=== PATIENT | female | born 1980 | race Two or more races ===

== ENCOUNTER 2020-10-15 00:16 | Inpatient (IN) | payer MEDICAID ==
[~2020-10-15] VITALS: Ht 157.5 cm; Wt 81.6 kg
[~2020-10-15 00:16] MED LIST: PREN-96 PO
[2020-10-15 01:08] LABS: Basophils # (auto) 0.1 10 ^3/uL (0-0.2); Basophils % (auto) 0.3 % (0.0-2.0); Eosinophils # (auto) 0.3 10 ^3/uL (0-0.8); Eosinophils % (auto) 2.3 % (0.0-7.0); Hematocrit 27.6 % (36.0-46.0); Hemoglobin 7.9 g/dL (12.2-16.2); Lymphocytes # (auto) 2.8 10 ^3/uL (0.4-5.4); Lymphocytes % (auto) 19.3 % (10.0-50.0); Mean Corpuscular Hemoglobin 16.9 pg (28.0-32.0); Mean Corpuscular Hgb Conc. 28.8 g/dL (32.0-36.0); Mean Corpuscular Volume 58.8 fL (80.0-100.0); Monocytes % (auto) 6.7 % (0.0-12.0); Neutrophils # (auto) 10.5 10 ^3/uL (1.6-8.6); Neutrophils % (auto) 71.4 % (37.0-80.0); Nucleated Red Blood Cells % 0.1 %; Red Blood Cells 4.69 10^6/uL (4.0-5.20); Red Cell Distribution Width 21.4 % (11.8-14.3); White Blood Cell 14.7 10^3/uL (4.4-10.8)
[2020-10-15] MEDS ORDERED: ONDANSETRON HCL 4 MG/2 ML VIAL IV ONE (01:15)
[2020-10-15] MEDS ORDERED: MORPHINE SULF INJ 2 MG/ML SYRINGE 1ML IV ONE (01:15)
[2020-10-15] MEDS ORDERED: SODIUM CHLORIDE 0.9% 250 ML IV ONE (01:15)
[2020-10-15 01:16] LABS: INR 1.03 (0.9-1.15); Partial Thromboplastin Time 28.2 sec (23.0-31.2)
[2020-10-15 01:17] LABS: Albumin 3.7 g/dL (3.4-5.0); BUN/Creatinine Ratio 18.6; Calcium 8.4 mg/dL (8.5-10.1); Potassium 3.8 mmol/L (3.5-5.1)
[2020-10-15 01:19] LABS: Bilirubin, Total 0.3 mg/dL (0.2-1.0); Total Protein 8.2 g/dL (6.4-8.2)
[2020-10-15] MEDS ORDERED: metroNIDAZOLE 500MG/100ML 100 ML IV ONE (01:30)
[2020-10-15] MEDS ORDERED: cefTRIAXone 1GM/50ML D5W 50 ML IV ONE (01:30)
[2020-10-15] MEDS ORDERED: HYDROmorphone HCL 2 MG/ML VL IV ONE (02:45)
[2020-10-15] MEDS: SODIUM CHLORIDE 0.9% 1,000 ML IV SCH ×2 (02:50→13:56)
[2020-10-15] MEDS: ONDANSETRON HCL 4 MG/2 ML VIAL IV PRN ×3 (02:51→11:21)
[2020-10-15] MEDS: metroNIDAZOLE 500MG/100ML 100 ML IV SCH ×3 (05:40→21:20)
[2020-10-15] MEDS: MORPHINE SULFATE 4 MG/ML SYR/VIAL IV PRN ×2 (06:03→11:21)
[2020-10-15 09:12] LABS: Urine Bacteria NONE SEEN /hpf (None Seen); Urine Blood Negative /uL (Negative); Urine Mucus FEW (None Seen); Urine Specific Gravity 1.024 (1.001-1.035); Urine WBC 6 /hpf (0 - 5)
[2020-10-15] MEDS: cefTRIAXone 1GM/50ML D5W 50 ML IV SCH (09:25)
[2020-10-15] MEDS: PANTOPRAZOLE 40 MG/10 ML VIAL INJ IV SCH (09:58)
[2020-10-15] MEDS: HYDROmorphone HCL 2 MG/ML VL IV PRN (15:57)
[2020-10-15 20:30] VITALS: BP 125/70
[2020-10-15] MEDS ORDERED: FERR-7 PO (22:16)
[2020-10-15] MEDS ORDERED: METR500T PO (22:16)
[2020-10-15 22:18] VITALS: BP 125/70
[2020-10-16] MEDS: SODIUM CHLORIDE 0.9% 1,000 ML IV SCH ×2 (03:19→14:30)
[2020-10-16 05:00] VITALS: BP 114/63
[2020-10-16] MEDS: metroNIDAZOLE 500MG/100ML 100 ML IV SCH ×3 (05:32→21:20)
[2020-10-16 06:09] LABS: Basophils # (auto) 0.1 10 ^3/uL (0-0.2); Eosinophils # (auto) 0.5 10 ^3/uL (0-0.8); Hemoglobin 7.8 g/dL (12.2-16.2); Neutrophils # (auto) 16.6 10 ^3/uL (1.6-8.6)
[2020-10-16 06:12] LABS: Basophils % (auto) 0.5 % (0.0-2.0); Eosinophils % (auto) 2.7 % (0.0-7.0); Lymphocytes # (auto) 1.6 10 ^3/uL (0.4-5.4); Lymphocytes % (auto) 7.9 % (10.0-50.0); Mean Corpuscular Hemoglobin 17.9 pg (28.0-32.0); Mean Corpuscular Volume 59.7 fL (80.0-100.0); Monocytes # (auto) 1.3 10 ^3/uL (0-1.3); Monocytes % (auto) 6.3 % (0.0-12.0); Neutrophils % (auto) 82.6 % (37.0-80.0); Nucleated Red Blood Cells % 0.3 %; Red Blood Cells 4.35 10^6/uL (4.0-5.20)
[2020-10-16 06:21] LABS: Red Cell Distribution Width 21.3 % (11.8-14.3)
[2020-10-16 06:28] LABS: Potassium 4.3 mmol/L (3.5-5.1)
[2020-10-16 06:40] LABS: Albumin 3.2 g/dL (3.4-5.0); BUN/Creatinine Ratio 14.6; Bilirubin, Total 0.5 mg/dL (0.2-1.0); Calcium 7.9 mg/dL (8.5-10.1); Total Protein 7.4 g/dL (6.4-8.2)
[2020-10-16] MEDS: cefTRIAXone 1GM/50ML D5W 50 ML IV SCH (08:56)
[2020-10-16 09:07] VITALS: BP 115/65
[2020-10-16] MEDS: PANTOPRAZOLE 40 MG/10 ML VIAL INJ IV SCH (09:33)
[2020-10-16 13:01] VITALS: BP 110/55
[2020-10-16] MEDS ORDERED: SODIUM BICARBONATE 50ML VIAL 50 ML in SODIUM CHLORIDE 0.9% 1,000 ML IV SCH (13:15)
[2020-10-16 16:21] VITALS: BP 117/56
[2020-10-16] MEDS: MORPHINE SULFATE 4 MG/ML SYR/VIAL IV PRN (16:45)
[2020-10-16 22:00] VITALS: BP 114/72
[2020-10-17] MEDS: SODIUM CHLORIDE 0.9% 1,000 ML IV SCH ×2 (00:06→14:28)
[2020-10-17 05:00] VITALS: BP 118/69
[2020-10-17 05:19] LABS: Basophils # (auto) 0 10 ^3/uL (0-0.2); Basophils % (auto) 0.2 % (0.0-2.0); Eosinophils # (auto) 0.2 10 ^3/uL (0-0.8); Lymphocytes # (auto) 1.8 10 ^3/uL (0.4-5.4); Mean Corpuscular Hemoglobin 17.6 pg (28.0-32.0)
[2020-10-17 05:22] LABS: Eosinophils % (auto) 1.1 % (0.0-7.0); Hematocrit 26.9 % (36.0-46.0); Hemoglobin 8.2 g/dL (12.2-16.2); Lymphocytes % (auto) 10.2 % (10.0-50.0); Mean Corpuscular Hgb Conc. 30.3 g/dL (32.0-36.0); Monocytes # (auto) 1.1 10 ^3/uL (0-1.3); Monocytes % (auto) 6.1 % (0.0-12.0); Neutrophils # (auto) 14.5 10 ^3/uL (1.6-8.6); Neutrophils % (auto) 82.4 % (37.0-80.0); Red Blood Cells 4.64 10^6/uL (4.0-5.20); White Blood Cell 17.6 10^3/uL (4.4-10.8)
[2020-10-17 05:38] LABS: Calcium 8.1 mg/dL (8.5-10.1); Potassium 3.6 mmol/L (3.5-5.1)
[2020-10-17] MEDS: metroNIDAZOLE 500MG/100ML 100 ML IV SCH ×3 (05:58→23:06)
[2020-10-17 09:00] VITALS: BP 118/69
[2020-10-17] MEDS: cefTRIAXone 1GM/50ML D5W 50 ML IV SCH (09:00)
[2020-10-17] MEDS: PANTOPRAZOLE 40 MG/10 ML VIAL INJ IV SCH (09:35)
[2020-10-17] MEDS ORDERED: ceFAZolin 1GM/50ML 100 ML IV ONE (12:46)
[2020-10-17 13:00] VITALS: BP 118/70
[2020-10-17 17:00] VITALS: BP 125/69
[2020-10-17 22:24] VITALS: BP 124/70
[2020-10-18 05:00] VITALS: BP 117/75
[2020-10-18 05:36] LABS: Basophils # (auto) 0 10 ^3/uL (0-0.2); Hematocrit 24.7 % (36.0-46.0); Hemoglobin 7.7 g/dL (12.2-16.2); Monocytes # (auto) 0.9 10 ^3/uL (0-1.3)
[2020-10-18 05:37] LABS: Basophils % (auto) 0.3 % (0.0-2.0); Eosinophils # (auto) 0.3 10 ^3/uL (0-0.8); Eosinophils % (auto) 1.8 % (0.0-7.0); Lymphocytes # (auto) 1.8 10 ^3/uL (0.4-5.4); Lymphocytes % (auto) 12.8 % (10.0-50.0); Mean Corpuscular Hemoglobin 17.8 pg (28.0-32.0); Mean Corpuscular Volume 57.5 fL (80.0-100.0); Monocytes % (auto) 6.2 % (0.0-12.0); Neutrophils # (auto) 11.1 10 ^3/uL (1.6-8.6); Neutrophils % (auto) 78.9 % (37.0-80.0); White Blood Cell 14.1 10^3/uL (4.4-10.8)
[2020-10-18 05:51] LABS: Calcium 7.9 mg/dL (8.5-10.1); Potassium 3.4 mmol/L (3.5-5.1)
[2020-10-18 05:53] LABS: BUN/Creatinine Ratio 20.6
[2020-10-18] MEDS: metroNIDAZOLE 500MG/100ML 100 ML IV SCH ×3 (06:00→22:19)
[2020-10-18] MEDS: SODIUM CHLORIDE 0.9% 1,000 ML IV SCH ×2 (06:49→14:21)
[2020-10-18] MEDS ORDERED: ceFAZolin 1GM/50ML 100 ML IV ONE (08:31)
[2020-10-18] MEDS ORDERED: FAMOTIDINE (10MG/ML) 2ML VL IV ONE ×2 (08:36→11:00)
[2020-10-18] MEDS ORDERED: BUPIVACAINE 0.25% INJ 50ML VIAL ONE (08:54)
[2020-10-18] MEDS ORDERED: MIDAZOLAM HCL 2MG/2ML 2ml VIAL (1mg/ml) ONE (08:54)
[2020-10-18 08:55] VITALS: BP 117/60
[2020-10-18] MEDS ORDERED: SUCCINYLCHOLINE CHLORIDE 20 MG/ML 10ML VIAL IV ONE (08:55)
[2020-10-18] MEDS ORDERED: GLYCOPYRROLATE 0.2 MG/ML 1ML VIAL ONE (08:58)
[2020-10-18] MEDS ORDERED: HYDROmorphone HCL 2 MG/ML VL ONE (08:58)
[2020-10-18] MEDS ORDERED: KETOROLAC TROMETH 30 MG/ML 1ML VIAL ONE (08:58)
[2020-10-18] MEDS ORDERED: ROCURONIUM 10MG/ML 10ML VIAL IV ONE (08:58)
[2020-10-18] MEDS ORDERED: LIDOCAINE 2% (LOCAL ANESTH.) PF 5ml SDV ONE (08:58)
[2020-10-18] MEDS ORDERED: fentaNYL CITRATE 100 MCG/2 ML VL ONE ×2 (08:58→09:35)
[2020-10-18] MEDS ORDERED: ONDANSETRON HCL 4 MG/2 ML VIAL ONE (08:58)
[2020-10-18] MEDS ORDERED: PROPOFOL 10 MG/ML 20 ML IV ONE (08:58)
[2020-10-18] MEDS ORDERED: DexAMETHasone SOD PHOS 10MG/1ML VIAL INJ ONE (08:58)
[2020-10-18] MEDS: cefTRIAXone 1GM/50ML D5W 50 ML IV SCH (09:00)
[2020-10-18] MEDS: PANTOPRAZOLE 40 MG/10 ML VIAL INJ IV SCH (10:00)
[2020-10-18] MEDS ORDERED: POTASSIUM EFFERVESENT TAB 25 MEQ GT ONE (10:45)
[2020-10-18] MEDS ORDERED: HYDROmorphone HCL 2 MG/ML VL IV PRN (11:00)
[2020-10-18] MEDS ORDERED: ONDANSETRON HCL 4 MG/2 ML VIAL IV PRN (11:00)
[2020-10-18 13:08] VITALS: BP 120/56
[2020-10-18 16:48] VITALS: BP 112/56
[2020-10-18] MEDS: HYDROmorphone HCL 2 MG/ML VL IV PRN (20:40)
[2020-10-18 22:00] VITALS: BP 110/59
[2020-10-19] VITALS (8 sets, daily range): BP systolic 105–116; BP diastolic 60–71
[2020-10-19 06:12] LABS: Basophils # (auto) 0 10 ^3/uL (0-0.2); Eosinophils # (auto) 0 10 ^3/uL (0-0.8); White Blood Cell 17.2 10^3/uL (4.4-10.8)
[2020-10-19 06:16] LABS: Basophils % (auto) 0.2 % (0.0-2.0); Hematocrit 22.7 % (36.0-46.0); Lymphocytes % (auto) 5.6 % (10.0-50.0); Mean Corpuscular Hemoglobin 17.8 pg (28.0-32.0); Mean Corpuscular Hgb Conc. 30.7 g/dL (32.0-36.0); Mean Corpuscular Volume 57.9 fL (80.0-100.0); Monocytes # (auto) 0.9 10 ^3/uL (0-1.3); Monocytes % (auto) 5.1 % (0.0-12.0); Neutrophils # (auto) 15.4 10 ^3/uL (1.6-8.6); Neutrophils % (auto) 89.1 % (37.0-80.0); Red Blood Cells 3.92 10^6/uL (4.0-5.20)
[2020-10-19 06:31] LABS: BUN/Creatinine Ratio 26.5; Calcium 8.3 mg/dL (8.5-10.1); Potassium 3.8 mmol/L (3.5-5.1)
[2020-10-19 06:38] LABS: Red Cell Distribution Width 22.7 % (11.8-14.3)
[2020-10-19] MEDS: metroNIDAZOLE 500MG/100ML 100 ML IV SCH ×3 (06:55→23:20)
[2020-10-19] MEDS: SODIUM CHLORIDE 0.9% 1,000 ML IV SCH ×2 (06:56→12:32)
[2020-10-19] MEDS: PANTOPRAZOLE 40 MG/10 ML VIAL INJ IV SCH (10:35)
[2020-10-19] MEDS: cefTRIAXone 1GM/50ML D5W 50 ML IV SCH (10:35)
[2020-10-19 11:28] LABS: Albumin 2.9 g/dL (3.4-5.0); Calcium 8.3 mg/dL (8.5-10.1); Potassium 3.7 mmol/L (3.5-5.1)
[2020-10-19 11:31] LABS: BUN/Creatinine Ratio 17.2; Bilirubin, Total 0.3 mg/dL (0.2-1.0); Total Protein 6.6 g/dL (6.4-8.2)
[2020-10-20] MEDS: SODIUM CHLORIDE 0.9% 1,000 ML IV SCH (00:52)
[2020-10-20 05:19] VITALS: BP 98/49
[2020-10-20 06:02] LABS: Eosinophils # (auto) 0.1 10 ^3/uL (0-0.8); Hemoglobin 8.1 g/dL (12.2-16.2); Neutrophils # (auto) 9.6 10 ^3/uL (1.6-8.6); White Blood Cell 12.8 10^3/uL (4.4-10.8)
[2020-10-20 06:04] LABS: Basophils # (auto) 0 10 ^3/uL (0-0.2); Basophils % (auto) 0.3 % (0.0-2.0); Eosinophils % (auto) 0.6 % (0.0-7.0); Hematocrit 26.7 % (36.0-46.0); Lymphocytes # (auto) 2.4 10 ^3/uL (0.4-5.4); Lymphocytes % (auto) 18.4 % (10.0-50.0); Mean Corpuscular Hemoglobin 18.7 pg (28.0-32.0); Mean Corpuscular Hgb Conc. 30.3 g/dL (32.0-36.0); Mean Corpuscular Volume 61.8 fL (80.0-100.0); Monocytes # (auto) 0.8 10 ^3/uL (0-1.3); Monocytes % (auto) 5.9 % (0.0-12.0); Neutrophils % (auto) 74.8 % (37.0-80.0); Nucleated Red Blood Cells % 0.1 %; Red Blood Cells 4.33 10^6/uL (4.0-5.20)
[2020-10-20 06:08] LABS: Red Cell Distribution Width 26.1 % (11.8-14.3)
[2020-10-20 06:09] LABS: Albumin 2.9 g/dL (3.4-5.0); Calcium 7.6 mg/dL (8.5-10.1); Potassium 3.5 mmol/L (3.5-5.1)
[2020-10-20 06:12] LABS: BUN/Creatinine Ratio 23.8; Bilirubin, Total 0.4 mg/dL (0.2-1.0); Total Protein 6.6 g/dL (6.4-8.2)
[2020-10-20] MEDS: metroNIDAZOLE 500MG/100ML 100 ML IV SCH (06:51)
[2020-10-20 09:00] VITALS: BP 110/62
[2020-10-20] MEDS: PANTOPRAZOLE 40 MG/10 ML VIAL INJ IV SCH (10:06)
[2020-10-20] MEDS: cefTRIAXone 1GM/50ML D5W 50 ML IV SCH (10:07)
[2020-10-20] MEDS ORDERED: DOCUSATE SOD 100 MG CAP PO ONE (10:45)
[2020-10-20] MEDS ORDERED: DOCUSATE SOD 100 MG CAP PO PRN (10:45)
== END 2020-10-20 12:55 | disposition home or self-care (01) | DRG 710 ==
LOC: ER 00:26 → OVERFLOW 02:33 → WEST WING 20:12
PROVIDERS: ADMIT Nurse Practitioner; ATTEND Internal Medicine Pulmonary Disease
PROC: 0FT44ZZ Resection of Gallbladder, Percutaneous Endoscopic Approach (ICD-10-PCS; principal; 2020-10-18 08:56)
DX: A41.9 Sepsis, unspecified organism (principal); K81.0 Acute cholecystitis; K65.3 Choleperitonitis; E66.9 Obesity, unspecified; Z20.822 Contact with and (suspected) exposure to COVID-19; E87.6 Hypokalemia; D50.9 Iron deficiency anemia, unspecified; Z83.3 Family history of diabetes mellitus; Z79.899 Other long term (current) drug therapy; Z68.33 Body mass index [BMI] 33.0-33.9, adult
CPT/HCPCS: 36415; 76705; 80048; 80053; 81001; 82150; 83690; 84702; 85025; 85610; 85730; 86850; 86900; 86901; 86920; 87426; 93971; 96361; 96365; 96366; 96367; 96375; 96376; C9113; G0378; J0330; J0690; J0696; J1100; J1885; J2001; J2250; J2405; J2704; J3490

== ENCOUNTER 2023-07-09 11:42 | Emergency (ER) | payer SELFPAY ==
[~2023-07-09] VITALS: Ht 157.5 cm; Wt 84.8 kg
[2023-07-09] VITALS (11 sets, daily range): BP systolic 100–118; BP diastolic 47–63; PULSE 62–73; RESP 14–28; TEMP 98.1–98.5; O2SAT 96–97
[~2023-07-09 11:42] MED LIST changes: +FERR-7 PO; +METR500T PO; -PREN-96 PO
[2023-07-09 12:54] LABS: Hematocrit 22.7 % (36.0-46.0); Lymphocytes # (auto) 1.6 10 ^3/uL (0.4-5.4); Monocytes # (auto) 0.6 10 ^3/uL (0-1.3)
[2023-07-09 12:56] LABS: Basophils # (auto) 0 10 ^3/uL (0-0.2); Basophils % (auto) 0.4 % (0.0-2.0); Eosinophils # (auto) 0.3 10 ^3/uL (0-0.8); Eosinophils % (auto) 2.5 % (0.0-7.0); Lymphocytes % (auto) 15.8 % (10.0-50.0); Mean Corpuscular Hemoglobin 14.8 pg (28.0-32.0); Mean Corpuscular Hgb Conc. 27.9 g/dL (32.0-36.0); Mean Corpuscular Volume 53.2 fL (80.0-100.0); Monocytes % (auto) 5.4 % (0.0-12.0); Neutrophils # (auto) 7.9 10 ^3/uL (1.6-8.6); Neutrophils % (auto) 75.9 % (37.0-80.0); Nucleated Red Blood Cells % 0.1 %; Red Blood Cells 4.27 10^6/uL (4.0-5.20); White Blood Cell 10.4 10^3/uL (4.4-10.8)
[2023-07-09 12:57] LABS: Red Cell Distribution Width 22.8 % (11.8-14.3)
[2023-07-09 12:58] LABS: Hemoglobin 6.3 g/dL (12.2-16.2)
[2023-07-09 13:01] LABS: Chloride 109 mmol/L (98-107); Potassium 3.9 mmol/L (3.5-5.1); Sodium 139 mmol/L (136-145)
[2023-07-09 13:02] LABS: Anion Gap 6 (5-15); Calcium 8.6 mg/dL (8.7-10.4); Carbon Dioxide 24 mmol/L (20-30)
[2023-07-09 13:03] LABS: INR 1.09 (0.9-1.15); Partial Thromboplastin Time 27.3 SEC (24.5-34.5); Prothrombin Time 11.4 sec (9.3-11.8)
[2023-07-09 13:07] LABS: BUN/Creatinine Ratio 23.1 (10.0-20.0); Blood Urea Nitrogen 12 mg/dL (9-23); Glucose 120 mg/dL (74-106)
[2023-07-09 13:10] LABS: Anisocytosis Slight; Platelet Estimate Adequate
[2023-07-09 13:11] LABS: Hypochromia Marked
[2023-07-09 15:35] LABS: Urine Bacteria FEW /hpf (None Seen); Urine Blood Negative /uL (Negative); Urine Clarity Clear (Clear); Urine Color Yellow (Yellow); Urine Mucus FEW (None Seen); Urine Protein, UAD Negative (Negative); Urine Specific Gravity 1.019 (1.001-1.035); Urine Urobilinogen Normal (Negative); Urine WBC 1 /hpf (0 - 5); Urine pH 6.5 (5.0-8.0)
[2023-07-09 23:07] LABS: Hematocrit 28.2 % (36.0-46.0)
== END 2023-07-09 23:55 | disposition home or self-care (01) ==
LOC: ER 11:42
DX: D64.9 Anemia, unspecified (principal); Z79.899 Other long term (current) drug therapy; Z86.2 Personal history of diseases of the blood and blood-forming organs and certain disorders involving the immune mechanism
CPT/HCPCS: 36415; 36430; 80048; 81001; 85014; 85018; 85025; 85610; 85730; 86850; 86900; 86901; 86920; 99285; P9016

== ENCOUNTER 2024-08-08 12:42 | Inpatient (IN) | payer MEDICAID ==
[2024-08-08] VITALS (8 sets, daily range): BP systolic 101–116; BP diastolic 41–69; PULSE 66–81; RESP 14–23; TEMP 98.2–98.9; O2SAT 98–99
[~2024-08-08] VITALS: Ht 160 cm; Wt 85.7 kg
--- NOTE | 2024-08-08 13:13 | ED.PDOC ---
History of Present Illness HPI Comments HPI: 44 y/o F, with PMHX anemia presents to the ED for CC of weakness. Patient states, that she had blood work drawn x 2days ago in [facility] for which she received the results today (08/08/24) indicating her Hbg to be 5.6. Patient reports, that she previously received a blood transfusion x1year ago. Patient relays, that she recently became insured and has not yet seen a PCP for her symptoms. Patient denies active bleeding, hematemesis, melena, or blood streaked bowels. No other symptoms or modifying factors present at this time. PATIENT APPROVED FOR BLOOD TRANSFUSION VITALS: Temp: 98.5 BP:112/54 HR:73 RR:18 SPO2:100 Past medical history: ANEMIA Past surgical history: CHOLECYSTECTOMY Medications: FOLLIC ACID, IRON HPI: Poor Historian. Past Medical History: Past Surgical History: REVIEW OF SYSTEMS: CONSTITUTIONAL: Denies acute: fever, diaphoresis, chills, HEAD: Denies acute: headache, photophobia Eyes: Denies acute: Double vision, vision loss, eye pain, eye discharge. EARS: Denies acute: tinnitus, hearing loss, ear discharge, ear pain, THROAT: Denies acute: sore throat, swelling, difficulty swallowing , pain with swallowing, change in voice. NECK: Denies acute: neck pain, neck swelling, stiff neck. HEART: Denies acute : chest pain, palpitations, LUNGS: Denies acute: SOB, wheezing, cough, hemoptysis ABDOMEN: Denies acute: abdominal pain, Nausea, Vomiting, diarrhea, melena , hematemesis, hematochezia SKIN: Denies acute: rash, redness, lesions, itchiness. EXTREMITIES: Denies acute: calf pain, numbness, tingling, weakness, denies pain in extremity. Denies acute: Low back pain. Neuro: Denies acute: focal neurological deficit, motor or sensory focal neurological deficit, tremors, seizure like activity, confusion, change in mental status, loss of bowel or bladder function, cauda equina like symptoms. : Denies acute: dysuria, hematuria, flank pain, increase in urinary frequency. PSYCH: Denies acute: hallucination, suicidal ideation, homicidal ideation. FEMALE: Denies acute: abnormal vaginal bleeding, foul odor, unusual discharge. PHYSICAL EXAM: General: ----mild----acute distress, awake and alert. Head: normocephalic, atraumatic. Neck: supple, trachea is midline, no swelling. Throat: Normal phonation. Eyes:, no erythema, no purulent discharge, no proptosis, no icterus. Heart: regular rate, regular rhythm, no significant murmur appreciated. Lungs: no apparent respiratory distress, Able to speak in full sentences. No wheezing, no rhonchi, no crackles. No stridors Clear to auscultation bilaterally. Abdomen: non tender to palpation, non distended, soft, no guarding, no rebound, + bowel sounds. Neuro: Awake, Alert, oriented to name, self, situation, follows commands GCS=15. Speech is normal. Skin: no petechia, no purpura, no cyanosis, noted-pale, not jaundice. Lower extremities: --no - Pitting edema no deformity, no focal swelling, no calf TTP. Makes eye contact. moves all four extremities. Face: no apparent facial droop. Ambulating in the ED independently. ED COURSE: Chief Complaint: General Weakness Time Seen by MD: 13:05 Primary Care Provider: KAREL WRIGHT Reviewed Notes: Nurses Notes, Medications, Allergies Allergies: Coded Allergies: NO KNOWN ALLERGIES (Unverified , 12/20/13) Home Meds Active Scripts Nitrofurantoin Monohydrate Mac (Macrobid) 100 Mg Cap, 100 MG PO BID for 4 Days, #8 CAP Prov:KOSTA MENDEZ MOTOR OPERATOR 08/10/24 Ferrous Sulfate (Iron) 325 Mg Tab, 325 MG PO BID for 30 Days, #60 TAB 5 Refills Prov:KOSTA MENDEZ MOTOR OPERATOR 08/10/24 Reported Medications Ferrous Sulfate (Iron) 325 Mg Tab, 325 MG PO BID, TAB 10/15/20 Information Source: Patient Mode of Arrival: Ambulatory Severity: Mild Timing: Days Duration: Since onset Prehospital treatment: None Was a procedure done? Was a procedure done?: No Differential Dx Considerations may include: Includes but not limited to thyroid disease, encephalopathy, electrolyte abnormality, sepsis, infection, intracranial pathology, drug adverse effects, arrhythmia, kidney insufficiency, ACS, CVA, malignancy, anemia X-Ray, Labs, Meds, VS Vital Signs Date Time Temp Pulse Resp B/P (MAP) Pulse Ox O2 Delivery O2 Flow Rate FiO2 08/08/24 17:11 98.5 74 15 111/67 98.5 08/08/24 16:45 65 08/08/24 16:16 Room Air* 0 21 08/08/24 14:57 98.3 73 16 128/74 (92) 97 98.3 08/08/24 14:57 73 16 97 Room Air 08/08/24 12:59 98.5 75 18 112/54 (73) 99 98.5 Lab Test 08/08/24 13:20 08/08/24 13:18 Range/Units Reticulocyte Count (auto) 2.57 H 0.5-1.5 % White Blood Count 12.5 H 4.4-10.8 10^3/uL Red Blood Count 4.01 4.0-5.20 10^6/uL Hemoglobin 5.5 *L 12.2-16.2 g/dL Hematocrit 21.2 L 36.0-46.0 % Mean Corpuscular Volume 52.9 L 80.0-100.0 fL Mean Corpuscular Hemoglobin 13.8 L 28.0-32.0 pg Mean Corpuscular Hemoglobin Concent 26.1 L 32.0-36.0 g/dL Red Cell Distribution Width 24.3 H 11.8-14.3 % Platelet Count 372 140-450 10^3/uL Mean Platelet Volume 9.5 6.9-10.8 fL Neutrophils (%) (Auto) 68.9 37.0-80.0 % Lymphocytes (%) (Auto) 22.7 10.0-50.0 % Monocytes (%) (Auto) 6.9 0.0-12.0 % Eosinophils (%) (Auto) 0.5 0.0-7.0 % Basophils (%) (Auto) 1.0 0.0-2.0 % Neutrophils # (Auto) 8.6 1.6-8.6 10 ^3/uL Lymphocytes # (Auto) 2.8 0.4-5.4 10 ^3/uL Monocytes # (Auto) 0.9 0-1.3 10 ^3/uL Eosinophils # (Auto) 0.1 0-0.8 10 ^3/uL Basophils # (Auto) 0.1 0-0.2 10 ^3/uL Nucleated Red Blood Cells 0.0 % Platelet Estimate Adequate Large Platelets Moderate Hypochromasia (manual) Marked Anisocytosis (manual) Moderate Microcytosis Marked Tear Drop Cells Few Ovalocytes Moderate Sodium Level 141 136-145 mmol/L Potassium Level 4.1 3.5-5.1 mmol/L Chloride Level 109 H 98-107 mmol/L Carbon Dioxide Level 26 20-31 mmol/L Anion Gap 6 5-15 Blood Urea Nitrogen 14 9-23 mg/dL Creatinine 0.68 0.550-1.02 mg/dL Glomerular Filtration Rate Calc 110 >90 mL/min BUN/Creatinine Ratio 20.6 H 10.0-20.0 Serum Glucose 82 74-106 mg/dL Lactic Acid Level 1.2 0.4-2.0 mmol/L Calcium Level 9.1 8.7-10.4 mg/dL Total Bilirubin 0.5 0.2-1.0 mg/dL Aspartate Amino Transferase (AST) < 8 L 13-40 U/L Alanine Aminotransferase (ALT) 13 7-40 U/L Alkaline Phosphatase 95 46-116 U/L Troponin I High Sensitivity 14 </=34 ng/L Total Protein 7.4 5.7-8.2 g/dL Albumin 4.5 3.2-4.8 g/dL Time of 1ST Reevaluation: 13:35 Reevaluation 1ST: Unchanged Patient Education/Counseling: Diagnosis, Treatment Family Education/Counseling: Other Comments Patient presented with the above HPI.---generalized weakness---workup was initiated. patient was found with the above mentioned diagnosis. the following medications were ordered: please refer to order lists of meds and tests obtained by myself Dr. Juárez. Patient ED course and VS have been stabilized. Patient has been reassessed in the ED and remained in a stable condition. Pertinent incidental findings were discussed with the patient and/or family. Patient/family voices understanding and is agreeable with plan. Patient has been observed in the ED adequate length of time to insure improvement/stability. Escalation of care considered: Consideration of escalation to observation or admission Patient was found with a symptomatic anemia requiring blood transfusion. Patient was consented for blood transfusion. Patient was ADMITTED to the medicine team for further evaluation and treatment of their presentation. All the reports of any imaging studies that were ordered by myself were reviewed by myself. Departure 1 Departure Time of Disposition: 14:10 Impression: Primary Impression: Symptomatic anemia Additional Impression: UTI (urinary tract infection) Disposition: ADMITTED INPATIENT Admit to: Tele Condition: Guarded e-Prescriptions Nitrofurantoin Monohydrate Mac (Macrobid) 100 Mg Cap 100 MG PO BID for 4 Days, #8 CAP Prov: KOSTA MENDEZ MOTOR OPERATOR 08/10/24 Ferrous Sulfate (Iron) 325 Mg Tab 325 MG PO BID for 30 Days, #60 TAB 5 Refills Prov: KOSTA MENDEZ MOTOR OPERATOR 08/10/24 Discharged With: Self Critical Care Note Critical Care Time?: Yes (35 min-critical care time only) Heart Score Heart Score: Heart Score Response (Comments) Value History N/A 0 EKG N/A 0 Age N/A 0 Risk Factors N/A 0 Troponin N/A 0 Total 0 I personally scribed for JEAN CLAUDE JUÁREZ DO ([email or web address]) on 08/08/24 at 13:13. Electronically submitted by Nisreen Salcedo ([email or web address]). I personally scribed for JEAN CLAUDE JUÁREZ DO ([email or web address]) on 08/08/24 at 16:41. Electronically submitted by Nisreen Salcedo ([email or web address]). I personally scribed for JEAN CLAUDE JUÁREZ DO ([email or web address]) on 08/08/24 at 17:40. Electronically submitted by Nisreen Salcedo ([email or web address]). I personally scribed for JEAN CLAUDE JUÁREZ DO ([email or web address]) on 08/08/24 at 19:36. Electronically submitted by Nisreen Salcedo ([email or web address]). JEAN CLAUDE JUÁREZ DO Aug 08, 2024 13:13
[2024-08-08 13:49] LABS: Basophils # (auto) 0.1 10 ^3/uL (0-0.2); Eosinophils # (auto) 0.1 10 ^3/uL (0-0.8); Hematocrit 21.2 % (36.0-46.0); Lymphocytes # (auto) 2.8 10 ^3/uL (0.4-5.4); Lymphocytes % (auto) 22.7 % (10.0-50.0)
[2024-08-08 13:50] LABS: Eosinophils % (auto) 0.5 % (0.0-7.0); Mean Corpuscular Hemoglobin 13.8 pg (28.0-32.0); Mean Corpuscular Hgb Conc. 26.1 g/dL (32.0-36.0); Mean Corpuscular Volume 52.9 fL (80.0-100.0); Monocytes # (auto) 0.9 10 ^3/uL (0-1.3); Monocytes % (auto) 6.9 % (0.0-12.0); Neutrophils # (auto) 8.6 10 ^3/uL (1.6-8.6); Neutrophils % (auto) 68.9 % (37.0-80.0); Platelet Count (auto) 372 10^3/uL (140-450); Red Blood Cells 4.01 10^6/uL (4.0-5.20); White Blood Cell 12.5 10^3/uL (4.4-10.8)
[2024-08-08 13:56] LABS: Red Cell Distribution Width 24.3 % (11.8-14.3)
[2024-08-08 14:00] LABS: Hemoglobin 5.5 g/dL (12.2-16.2)
[2024-08-08 14:03] LABS: Alanine Aminotransferase 13 U/L (7-40); Albumin 4.5 g/dL (3.2-4.8); Alkaline Phosphatase 95 U/L (46-116); Anion Gap 6 (5-15); Aspartate Aminotransferase < 8 U/L (13-40); BUN/Creatinine Ratio 20.6 (10.0-20.0); Bilirubin, Total 0.5 mg/dL (0.2-1.0); Blood Urea Nitrogen 14 mg/dL (9-23); Calcium 9.1 mg/dL (8.7-10.4); Carbon Dioxide 26 mmol/L (20-31); Chloride 109 mmol/L (98-107); Glucose 82 mg/dL (74-106); Potassium 4.1 mmol/L (3.5-5.1); Sodium 141 mmol/L (136-145); Total Protein 7.4 g/dL (5.7-8.2)
[2024-08-08] MEDS: SODIUM CHLORIDE 0.9% 1,000 ML IV ONE (15:00)
[2024-08-08] MEDS ORDERED: HYDROcodone-ACET 5/325MG TAB PO PRN (17:15)
[2024-08-08] MEDS ORDERED: ONDANSETRON HCL 4 MG/2 ML VIAL IV PRN (17:15)
[2024-08-08] MEDS ORDERED: DOCUSATE SOD 100 MG CAP PO PRN (17:15)
--- NOTE | 2024-08-08 17:21 | DVHHP2 ---
History of Present Illness Reason for Visit: Abnormal labs. Generalized weakness History of Present Illness The patient was a 44-year-old female refer to the emergency room after being found to be anemic by a provider in [facility]. The patient reports that she has been diagnosed with anemia in the past, and has not followed up with the PCP due to insurance reasons. Currently, she reports having generalized weakness, but denies having any dyspnea, or chest pain. Patient also denies having any hematuria, hematemesis, melena stools, or abnormal menstruation. P atient denies having any other medical history, and surgical history includes cholecystectomy. Heme/Onc: Anemia NOS Past Surgical History: Cholecystectomy Smoke: # pack years ALCOHOL: none Drugs: None Lives: with Family Review of Systems Constitutional: Yes: Weakness Eyes: No: Pain, Vision change, Conjunctivae inflammation, Eyelid inflammation, Other, Redness ENT: No: Ear pain, Ear discharge, Nose pain, Nose discharge, Nose congestion, Mouth pain, Mouth swelling, Throat pain, Throat swelling, Other Respiratory: No: Cough, Dry, Shortness of breath, SOB with excertion, Wheezing, Hemoptysis, Pleuritic Pain, Sputum, Wheezing, Other Cardiovascular: No: Chest Pain, Palpitations, Orthopnea, Paroxysmal Noc. Dyspnea, Edema, Lt Headedness, Other Gastrointestinal: No: Nausea, Vomiting, Abdominal Pain, Diarrhea, Constipation, Melena, Hematochezia, Other Genitourinary: No Dysuria, No Frequency, No Incontinence, No Hematuria, No Retention, No Other Musculoskeletal: No: other, neck pain, shoulder pain, arm pain, back pain, hand pain, leg pain, foot pain Skin: No: Rash, Lesions, Jaundice, Bruising, Other Neurological: No: Weakness, Numbness, Incoordination, Change in speech, Confusion, Seizures, Other Allergies: Coded Allergies: NO KNOWN ALLERGIES (Unverified , 12/20/13) Exam Vital Signs Vital Signs Date Time Temp Pulse Resp B/P (MAP) Pulse Ox O2 Delivery O2 Flow Rate FiO2 08/08/24 16:45 65 08/08/24 16:16 Room Air* 0 21 08/08/24 14:57 98.3 16 128/74 (92) 97 98.3 General Appearance: Alert, Oriented X3, Cooperative HEENT: Atraumatic, PERRLA Respiratory: Clear to auscultation, Normal air movement Cardiovascular: Normal S1, Normal S2 Extremities: No clubbing, No cyanosis, No edema, Normal pulses Neuro: Normal gait, Normal speech Psych/Mental Status: Mental status NL, Mood NL Labs/Xrays Labs Test 08/08/24 13:18 Range/Units White Blood Count 12.5 H 4.4-10.8 10^3/uL Red Blood Count 4.01 4.0-5.20 10^6/uL Hemoglobin 5.5 *L 12.2-16.2 g/dL Hematocrit 21.2 L 36.0-46.0 % Mean Corpuscular Volume 52.9 L 80.0-100.0 fL Mean Corpuscular Hemoglobin 13.8 L 28.0-32.0 pg Mean Corpuscular Hemoglobin Concent 26.1 L 32.0-36.0 g/dL Red Cell Distribution Width 24.3 H 11.8-14.3 % Platelet Count 372 140-450 10^3/uL Mean Platelet Volume 9.5 6.9-10.8 fL Neutrophils (%) (Auto) 68.9 37.0-80.0 % Lymphocytes (%) (Auto) 22.7 10.0-50.0 % Monocytes (%) (Auto) 6.9 0.0-12.0 % Eosinophils (%) (Auto) 0.5 0.0-7.0 % Basophils (%) (Auto) 1.0 0.0-2.0 % Neutrophils # (Auto) 8.6 1.6-8.6 10 ^3/uL Lymphocytes # (Auto) 2.8 0.4-5.4 10 ^3/uL Monocytes # (Auto) 0.9 0-1.3 10 ^3/uL Eosinophils # (Auto) 0.1 0-0.8 10 ^3/uL Basophils # (Auto) 0.1 0-0.2 10 ^3/uL Nucleated Red Blood Cells 0.0 % Sodium Level 141 136-145 mmol/L Potassium Level 4.1 3.5-5.1 mmol/L Chloride Level 109 H 98-107 mmol/L Carbon Dioxide Level 26 20-31 mmol/L Anion Gap 6 5-15 Blood Urea Nitrogen 14 9-23 mg/dL Creatinine 0.68 0.550-1.02 mg/dL Glomerular Filtration Rate Calc 110 >90 mL/min BUN/Creatinine Ratio 20.6 H 10.0-20.0 Serum Glucose 82 74-106 mg/dL Lactic Acid Level 1.2 0.4-2.0 mmol/L Calcium Level 9.1 8.7-10.4 mg/dL Total Bilirubin 0.5 0.2-1.0 mg/dL Aspartate Amino Transferase (AST) < 8 L 13-40 U/L Alanine Aminotransferase (ALT) 13 7-40 U/L Alkaline Phosphatase 95 46-116 U/L Troponin I High Sensitivity 14 </=34 ng/L Total Protein 7.4 5.7-8.2 g/dL Albumin 4.5 3.2-4.8 g/dL Assessment/Plan Assessment/Plan Impression: -symptomatic anemia -obesity -generalized weakness -leukocytosis Plan: -admit to Medical/Surgical unit -agree with 2 unit PRBC transfusion -iron panel prior to blood transfusion, check haptoglobin, direct and indirect Vladimir test Repeat labs in a.m. Total time spent with patient discussing and formulating plan of care: 35 minutes. This medical document was created using an electronic medical record system with [employer] dictation system. Although this document has been carefully reviewed, there may still be some phonetic and typographical errors. These areas are purely typographical due to imperfections of the software programs, and do not reflect any compromise in the patient's medical care. Plan discussed with: Patient, Other (RN) My Orders Orders - KOSTA MENDEZ LAN ADMINISTRATOR Procedure Category Date Status Time Iron Panel LAB 08/08/24 Logged 17:11 Reticulocyte Count LAB 08/08/24 Logged 17:11 Haptoglobin LAB 08/08/24 Logged 17:11 Direct Vladimir BBK 08/08/24 Logged 17:11 Indirect Vldaimir Test BBK 08/08/24 Logged 17:11 Admit ADMIT 08/08/24 Transmitted 17:12 Oxygen By Nasal RT 08/08/24 Transmitted Cannula 17:12 Hydrocodone-Acet PHA 08/08/24 Verified 5/325mg Tab ([place] 17:15 Acetaminophen Tab Or PHA 08/08/24 Verified Cap (Tylenol Tablet 17:15 Ondansetron Hcl PHA 08/08/24 Verified (Zofran) 17:15 Docusate Sodium PHA 08/08/24 Verified Capsule (Colace 17:15 Regular Diet DIET 08/08/24 Verified Dinner Basic Metabolic Panel LAB 08/09/24 Verified 04:00 Complete Blood Count LAB 08/09/24 Verified 04:00 Date of Service: Aug 08, 2024 Billing Provider: KOSTA MENDEZ NP Common Visit Codes: [id number] INP/OBS CARE (HIGH) KOSTA MENDEZ NP Aug 08, 2024 17:21
[2024-08-08 17:27] LABS: Platelet Estimate Adequate
[2024-08-08 17:28] LABS: Anisocytosis Moderate; Hypochromia Marked; Large Platelets MODERATE
[2024-08-08 17:29] LABS: Ovalocytes MODERATE; Tear Drop Cells FEW
[2024-08-08 18:13] LABS: % Iron Saturation 2.5 % (15-50)
[2024-08-08 20:26] LABS: Urine Bacteria FEW /hpf (None Seen); Urine Blood 3+ /uL (Negative); Urine Clarity Clear (Clear); Urine Color Colorless (Yellow); Urine Protein, UAD Negative (Negative); Urine Specific Gravity 1.016 (1.001-1.035); Urine Squamous Epithelial Cell FEW /hpf (<5); Urine Urobilinogen Normal (Negative); Urine WBC 7 /HPF (0-5); Urine pH 5.5 (5.0-9.0)
[2024-08-09] VITALS (7 sets, daily range): BP systolic 103–126; BP diastolic 45–67; PULSE 62–74; RESP 15–19; TEMP 98.1–98.4; O2SAT 95–98
[2024-08-09 06:11] LABS: Eosinophils # (auto) 0.1 10 ^3/uL (0-0.8); Neutrophils # (auto) 7.2 10 ^3/uL (1.6-8.6)
[2024-08-09 06:15] LABS: Basophils # (auto) 0 10 ^3/uL (0-0.2); Basophils % (auto) 0.3 % (0.0-2.0); Hematocrit 23.1 % (36.0-46.0); Hemoglobin 7.2 g/dL (12.2-16.2); Lymphocytes # (auto) 2.2 10 ^3/uL (0.4-5.4); Lymphocytes % (auto) 21.2 % (10.0-50.0); Mean Corpuscular Hemoglobin 18.5 pg (28.0-32.0); Mean Corpuscular Hgb Conc. 31.3 g/dL (32.0-36.0); Mean Corpuscular Volume 59.1 fL (80.0-100.0); Monocytes # (auto) 0.8 10 ^3/uL (0-1.3); Monocytes % (auto) 7.9 % (0.0-12.0); Neutrophils % (auto) 69.6 % (37.0-80.0); Platelet Count (auto) 243 10^3/uL (140-450); White Blood Cell 10.4 10^3/uL (4.4-10.8)
[2024-08-09 06:26] LABS: Anion Gap 8 (5-15); Calcium 8.8 mg/dL (8.7-10.4); Carbon Dioxide 24 mmol/L (20-31); Potassium 3.8 mmol/L (3.5-5.1); Sodium 140 mmol/L (136-145)
[2024-08-09 06:32] LABS: BUN/Creatinine Ratio 24.5 (10.0-20.0); Blood Urea Nitrogen 12 mg/dL (9-23); Glucose 105 mg/dL (74-106)
[2024-08-09 06:33] LABS: Chloride 108 mmol/L (98-107)
[2024-08-09 07:45] LABS: Platelet Estimate Adequate
[2024-08-09 07:46] LABS: Anisocytosis Marked; Hypochromia Marked
[2024-08-09 07:47] LABS: Ovalocytes MODERATE; Tear Drop Cells FEW
[2024-08-09 07:48] LABS: Large Platelets MODERATE
[2024-08-09] MEDS: cefTRIAXone 1GM/50ML D5W 50 ML IV SCH (09:57)
[2024-08-09] MEDS: ACETAMINOPHEN 500 MG TAB or CAP PO PRN (09:57)
--- NOTE | 2024-08-09 11:10 | DVHPN2 ---
Subjective Patient continues to report having generalized weakness. Reviewed: Care Plan, H&P, Labs, Medications Changes from previous H/P or p: No Changes General: Per HPI Eyes: No Pain, No Vision change, No Conjunctivae inflammation, No Eyelid inflammation, No Other, No Redness ENT: No Ear pain, No Ear discharge, No Nose pain, No Nose discharge, No Nose congestion, No Mouth pain, No Mouth swelling, No Throat pain, No Throat swelling, No Other Cardiovascular: No Chest Pain, No Palpitations, No Orthopnea, No Paroxysmal Noc. Dyspnea, No Edema, No Lt Headedness, No Other Respiratory: No Cough, No Dry, No Shortness of breath, No SOB with excertion, No Wheezing, No Hemoptysis, No Pleuritic Pain, No Sputum, No Other Gastrointestinal: No Nausea, No Vomiting, No Abdominal Pain, No Diarrhea, No Constipation, No Melena, No Hematochezia, No Other Genitourinary: No Dysuria, No Frequency, No Incontinence, No Hematuria, No Retention, No Other Musculoskeletal: No other, No neck pain, No shoulder pain, No arm pain, No back pain, No hand pain, No leg pain, No foot pain Skin: No Rash, No Lesions, No Jaundice, No Bruising, No Other Objective Vitals Vital Signs Date Time Temp Pulse Resp B/P (MAP) Pulse Ox O2 Delivery O2 Flow Rate FiO2 08/09/24 09:10 98.3 62 19 116/67 (83) 95 98.3 08/08/24 22:43 Room Air* 0 21 Intake/Output Intake and Output 08/09/24 07:00 Intake Total 550 ml Balance 550 ml Intake Oral 250 ml Blood Product 300 ml Other 0 ml # Voids 1 General Appearance: Alert, Oriented X3, Cooperative, mild distress HEENT: Atraumatic, PERRLA Lungs: Clear to auscultation, Normal air movement Cardiovascular: Normal S1, Normal S2 Abdomen: Normal bowel sounds Genitourinary: No Apparent Abnormalities Musculoskeletal: Normal sensory function, Normal motor function Neuro: Normal gait, Normal speech Psych/Mental Status: Mental status NL, Mood NL Medications Current Medications Medications Dose Ordered Sig/Eirca Route Start Time Stop Time Status Last Admin Dose Admin Acetaminophen/ Hydrocodone Bitart 1 tab Q6HPRN PRN PO 08/08/24 17:15 Acetaminophen 500 mg Q8HP PRN PO 08/08/24 17:15 08/09/24 09:57 500 MG Ondansetron HCl 4 mg Q6HP PRN IV 08/08/24 17:15 Docusate Sodium 100 mg BID PRN PO 08/08/24 17:15 Ceftriaxone Sodium 50 ml @ 100 mls/hr DAILY@09 IV 08/09/24 09:00 08/09/24 09:57 100 MLS/HR Laboratory Results Laboratory Tests 08/09/24 05:00 Chemistry Test 08/08/24 13:18 08/09/24 05:00 Albumin 4.5 g/dL (3.2-4.8) Calcium Level 9.1 mg/dL (8.7-10.4) 8.8 mg/dL (8.7-10.4) Total Protein 7.4 g/dL (5.7-8.2) LFT Test 08/08/24 13:18 Alanine Aminotransferase (ALT) 13 U/L (7-40) Alkaline Phosphatase 95 U/L (46-116) Aspartate Amino Transferase (AST) < 8 U/L (13-40) L Total Bilirubin 0.5 mg/dL (0.2-1.0) Urinalysis Test 08/08/24 20:13 Urine Color Colorless (Yellow) Urine Clarity Clear (Clear) Urine pH 5.5 (5.0-9.0) Urine Specific [place] 1.016 (1.001-1.035) Urine Protein Negative (Negative) Urine Ketones Negative (Negative) Urine Blood 3+ /uL (Negative) H Urine Nitrite Negative (Negative) Urine Bilirubin Negative (Negative) Urine Urobilinogen Normal mg/dL (Negative) Urine Leukocyte Esterase Trace /uL (Negative) Urine RBC 214 /hpf (0 - 4) Urine Microscopic WBC 7 /HPF (0-5) H Urine Squamous Epithelial Cells Few /hpf (<5) Urine Bacteria Few /hpf (None Seen) H Urine Glucose Normal mg/dL (Normal) Labs and/or images reviewed: Labs reviewed by me, Image(s) reviewed by me Assessment/Plan Assessment/Plan Impression: -symptomatic anemia -obesity -generalized weakness -leukocytosis -UTI Plan: -repeat hemoglobin 7.2. -continue IV antibiotic therapy -haptoglobin pending. Direct and indirect Vladimir test negative. Iron panel reviewed. -discussion made with the patient regarding plan of care. We will recheck H&H in a.m. with possible additional unit PRBC to be transfused. Repeat labs in a.m. Total time spent with patient discussing and formulating plan of care: 35 minutes. This medical document was created using an electronic medical record system with [employer] dictation system. Although this document has been carefully reviewed, there may still be some phonetic and typographical errors. These areas are purely typographical due to imperfections of the software programs, and do not reflect any compromise in the patient's medical care. Plan discussed with: Patient, Other (RN) My Orders Orders - KOSTA MENDEZ NP Procedure Category Date Status Time Haptoglobin LAB 08/08/24 In Process 17:11 Admit ADMIT 08/08/24 Transmitted 17:12 Oxygen By Nasal RT 08/08/24 Transmitted Cannula 17:12 Hydrocodone-Acet PHA 08/08/24 In Process 5/325mg Tab ([place] 17:15 Acetaminophen Tab Or PHA 08/08/24 In Process Cap (Tylenol Tablet 17:15 Ondansetron Hcl PHA 08/08/24 In Process (Zofran) 17:15 Docusate Sodium PHA 08/08/24 In Process Capsule (Colace 17:15 Regular Diet DIET 08/08/24 Transmitted Dinner Ceftriaxone 1gm/50ml PHA 08/09/24 In Process D5w (Rocephin) 09:00 Hemoglobin & LAB 08/10/24 Verified Hematocrit 04:00 Date of Service: Aug 09, 2024 Billing Provider: KOSTA MENDEZ NP Common Visit Codes: [id number] INP/OBS CARE(HIGH) KOSTA MENDEZ NP Aug 09, 2024 11:10
[2024-08-10 01:00] VITALS: BP 107/55; PULSE 58; RESP 18; TEMP 98.4; O2SAT 98
[2024-08-10 05:00] VITALS: BP 103/50; PULSE 68; RESP 17; TEMP 98.5; O2SAT 94
[2024-08-10 07:26] LABS: Hematocrit 24.9 % (36.0-46.0); Hemoglobin 7.5 g/dL (12.2-16.2)
[2024-08-10 08:00] VITALS: RESP 18; O2SAT 96
[2024-08-10 09:00] VITALS: BP 132/72; PULSE 67; RESP 17; TEMP 99.2; O2SAT 95
[2024-08-10] MEDS ORDERED: FERR-7 PO (10:57)
[2024-08-10] MEDS ORDERED: NITR-87 PO (10:57)
--- NOTE | 2024-08-10 11:03 | DVHDS2 ---
Discharge Summary Date of Admission Aug 08, 2024 at 17:12 Date of Discharge: Aug 10, 2024 Admitting Diagnosis Symptomatic anemia Labs/Diagnostic Data: Laboratory Results Test 08/10/24 06:42 08/09/24 05:00 08/08/24 20:13 08/08/24 17:15 Hemoglobin 7.5 g/dL (12.2-16.2) Hematocrit 24.9 % (36.0-46.0) White Blood Count 10.4 10^3/uL (4.4-10.8) Red Blood Count 3.90 10^6/uL (4.0-5.20) Mean Corpuscular Volume 59.1 fL (80.0-100.0) Mean Corpuscular Hemoglobin 18.5 pg (28.0-32.0) Mean Corpuscular Hemoglobin Concent 31.3 g/dL (32.0-36.0) Red Cell Distribution Width 33.0 % (11.8-14.3) Platelet Count 243 10^3/uL (140-450) Mean Platelet Volume 9.4 fL (6.9-10.8) Neutrophils (%) (Auto) 69.6 % (37.0-80.0) Lymphocytes (%) (Auto) 21.2 % (10.0-50.0) Monocytes (%) (Auto) 7.9 % (0.0-12.0) Eosinophils (%) (Auto) 1.0 % (0.0-7.0) Basophils (%) (Auto) 0.3 % (0.0-2.0) Neutrophils # (Auto) 7.2 10 ^3/uL (1.6-8.6) Lymphocytes # (Auto) 2.2 10 ^3/uL (0.4-5.4) Monocytes # (Auto) 0.8 10 ^3/uL (0-1.3) Eosinophils # (Auto) 0.1 10 ^3/uL (0-0.8) Basophils # (Auto) 0 10 ^3/uL (0-0.2) Nucleated Red Blood Cells 0.0 % Platelet Estimate Adequate Large Platelets Moderate Hypochromasia (manual) Marked Anisocytosis (manual) Marked Microcytosis Marked Tear Drop Cells Few Ovalocytes Moderate Haptoglobin 145 mg/dL (42-296) Sodium Level 140 mmol/L (136-145) Potassium Level 3.8 mmol/L (3.5-5.1) Chloride Level 108 mmol/L (98-107) Carbon Dioxide Level 24 mmol/L (20-31) Anion Gap 8 (5-15) Blood Urea Nitrogen 12 mg/dL (9-23) Creatinine 0.49 mg/dL (0.550-1.02) Glomerular Filtration Rate Calc 119 mL/min (>90) BUN/Creatinine Ratio 24.5 (10.0-20.0) Serum Glucose 105 mg/dL (74-106) Calcium Level 8.8 mg/dL (8.7-10.4) Urine Color Colorless (Yellow) Urine Clarity Clear (Clear) Urine pH 5.5 (5.0-9.0) Urine Specific Healy 1.016 (1.001-1.035) Urine Protein Negative (Negative) Urine Ketones Negative (Negative) Urine Blood 3+ /uL (Negative) Urine Nitrite Negative (Negative) Urine Bilirubin Negative (Negative) Urine Urobilinogen Normal mg/dL (Negative) Urine Leukocyte Esterase Trace /uL (Negative) Urine RBC 214 /hpf (0 - 4) Urine Microscopic WBC 7 /HPF (0-5) Urine Squamous Epithelial Cells Few /hpf (<5) Urine Bacteria Few /hpf (None Seen) Urine Glucose Normal mg/dL (Normal) Iron Level 10 ug/dL (50-170) Total Iron Binding Capacity 405 ug/dL (250-425) Percent Iron Saturation 2.5 % (15-50) Test 08/08/24 13:20 08/08/24 13:18 Reticulocyte Count (auto) 2.57 % (0.5-1.5) Lactic Acid Level 1.2 mmol/L (0.4-2.0) Total Bilirubin 0.5 mg/dL (0.2-1.0) Aspartate Amino Transferase (AST) < 8 U/L (13-40) Alanine Aminotransferase (ALT) 13 U/L (7-40) Alkaline Phosphatase 95 U/L (46-116) Troponin I High Sensitivity 14 ng/L (</=34) Total Protein 7.4 g/dL (5.7-8.2) Albumin 4.5 g/dL (3.2-4.8) Other Laboratory Tests 08/10/24 06:42 08/09/24 05:00 Brief Hx & Hospital Course: History of Present Illness The patient was a 44-year-old female refer to the emergency room after being found to be anemic by a provider in [facility]. The patient reports that she has been diagnosed with anemia in the past, and has not followed up with the PCP due to insurance reasons. Currently, she reports having generalized weakness, but denies having any dyspnea, or chest pain. Patient also denies having any hematuria, hematemesis, melena stools, or abnormal menstruation. Patient denies having any other medical history, and surgical history includes cholecystectomy. Course of hospitalization: Patient states that she was had intermittent primary care provider coverage. She states that her symptoms have worsened over the past couple of days prior to coming in the hospital. Patient was giving 2 units of PRBCs. Prior to the infusion, iron panel was performed which revealed and decrease iron, as well as iron saturation percentage. Patient was noted to have microcytic, hypochromic anemia. Patient also had positive reticulocyte count, but negative direct and indirect Vladimir test as well as haptoglobin. Patient was also found to have UTI, for which she was started on Rocephin. Her H&H has been stable, actually increasing today with her hemoglobin noted to be 7.5 today. Patient will be discharged home with a prescription for an iron sulfate 325 mg p.o. b.i.d., as well as a prescription for Macrobid 100 mg p.o. b.i.d. for four days. She was instructed to follow up with her PCP in 1-2 weeks. All questions answered. Physical examination. General: Alert and Oriented x3. No acute distress. Well-nourished. Obese Eyes: EOMI. Anicteric. HENT: Moist mucous membranes. Lungs: Clear to auscultation bilaterally. No accessory muscle use. Cardiovascular: Regular rate and rhythm. No murmur. No JVD. Abdomen: Soft, non-tender and non-distended. No palpable masses. Extremities: No edema. Non-tender. Skin: No rashes or lesions. Warm. Neurologic: No focal neurological deficits. CN II-XII grossly intact, but not individually tested. Psychiatric: Cooperative. Appropriate mood and affect. Total time spent with patient discussing and formulating plan of care: 35 minutes. This medical document was created using an electronic medical record system with Dragon computerized dictation system. Although this document has been carefully reviewed, there may still be some phonetic and typographical errors. These areas are purely typographical due to imperfections of the software programs, and do not reflect any compromise in the patient's medical care. Condition at Discharge: Fair Final Diagnosis/Problems List Symptomatic iron-deficiency anemia Secondary diagnosis: -obesity -generalized weakness -leukocytosis, sirs. Sepsis ruled out -UTI Discharge Disposition: Home Discharge Instruct/Medications Diet: Regular Activity: No Restrictions, As Tolerated Follow Up/Referral: Follow up with PCP group, associated with Dr. Cancino Medications: Iron sulfate 325 mg p.o. b.i.d. Macrobid 100 mg p.o. b.i.d. x4 days 36 Discharge Statement: "Patient was advised to return to the ER or call 911 if any headaches, dizziness, shortness of breath, chest pain, abdominal pain, bleeding, fevers, or worsening of medical condition. Patient was counseled about treatment plan, medications, possible side effects, patientverbalized understanding. All questions were answered to the best of my ability. This discharge took greater then 30 minutes in planning, reviewing documentation, counseling the patient, and discussing with other team members." ASSESSMENT ASSESSMENT Assessment Symptomatic iron-deficiency anemia Date of Service: Aug 10, 2024 Billing Provider: KOSTA MENDEZ NP Common Visit Codes: 86392-IOS/OBS DISCH DAY >30min KOSTA MENDEZ NP Aug 10, 2024 11:03
[2024-08-10 12:36] VITALS: TEMP 37.3
[2024-08-10 15:41] VITALS: BP 120/47; PULSE 66; RESP 18; TEMP 98.7; O2SAT 94
== END 2024-08-10 15:20 | disposition home or self-care (01) | DRG 663 ==
LOC: ER 12:42 → OVERFLOW 17:12 → EAST 22:40
PROVIDERS: ADMIT Nurse Practitioner Acute Care; ATTEND Nurse Practitioner Acute Care
PROC: 30233N1 Transfusion of Nonautologous Red Blood Cells into Peripheral Vein, Percutaneous Approach (ICD-10-PCS; principal; 2024-08-08)
DX: D50.9 Iron deficiency anemia, unspecified (principal); R65.10 Systemic inflammatory response syndrome (SIRS) of non-infectious origin without acute organ dysfunction; N39.0 Urinary tract infection, site not specified; E66.9 Obesity, unspecified; Z90.49 Acquired absence of other specified parts of digestive tract; Z79.899 Other long term (current) drug therapy; Z68.33 Body mass index [BMI] 33.0-33.9, adult
CPT/HCPCS: 36415; 36430; 80048; 80053; 81001; 83010; 83540; 83550; 83605; 84484; 85014; 85018; 85025; 85045; 86850; 86880; 86900; 86901; 86920; G0378